=== PATIENT | female | born 1950 | race Two or more races ===

== ENCOUNTER 2019-02-27 16:33 | Inpatient (IN) | payer OTHER ==
[~2019-02-27] VITALS: Ht 162.6 cm; Wt 68.0 kg
[2019-03-12] MEDS ORDERED: LIPITOR20 MG PO (10:40)
[2019-03-12] MEDS ORDERED: METFORMIN HCL500 MG PO (10:40)
== END 2019-03-26 17:02 | disposition home or self-care (01) | DRG 330 ==
LOC: SURG 03-12 08:15 → O/R 03-19 05:36 → SURG 03-19 05:36
PROVIDERS: ADMIT Colon & Rectal Surgery
PROC: 07TC4ZZ Resection of Pelvis Lymphatic, Percutaneous Endoscopic Approach (ICD-10-PCS; 2019-03-19)
PROC: 0DTN4ZZ Resection of Sigmoid Colon, Percutaneous Endoscopic Approach (ICD-10-PCS; 2019-03-19)
PROC: 07TD4ZZ Resection of Aortic Lymphatic, Percutaneous Endoscopic Approach (ICD-10-PCS; 2019-03-19)
PROC: 0D1B4Z4 Bypass Ileum to Cutaneous, Percutaneous Endoscopic Approach (ICD-10-PCS; principal; 2019-03-19 11:45)
DX: C20 Malignant neoplasm of rectum (principal); K92.1 Melena; K63.89 Other specified diseases of intestine; N73.6 Female pelvic peritoneal adhesions (postinfective); D72.828 Other elevated white blood cell count; R59.0 Localized enlarged lymph nodes; E78.00 Pure hypercholesterolemia, unspecified; E11.9 Type 2 diabetes mellitus without complications; Z08 Encounter for follow-up examination after completed treatment for malignant neoplasm; Z79.4 Long term (current) use of insulin; Z85.048 Personal history of other malignant neoplasm of rectum, rectosigmoid junction, and anus

== ENCOUNTER 2019-06-09 10:37 | Inpatient (IN) | payer OTHER ==
[~2019-06-09] VITALS: Ht 162.6 cm; Wt 57.2 kg
[~2019-06-09 10:37] MED LIST: LIPITOR20 MG PO; METFORMIN HCL500 MG PO
[2019-06-23] MEDS ORDERED: IMODIUM A-D2 M2 PO (10:56)
== END 2019-07-04 15:59 | disposition home or self-care (01) | DRG 330 ==
LOC: ADM 06-23 09:00 → O/R 07-01 06:30 → SURH 07-01 06:30 → CIR.AMB 07-01 09:00 → EDSTATUS 07-01 09:00 → SURH 07-01 13:11
PROVIDERS: ADMIT Colon & Rectal Surgery
PROC: 0DQB4ZZ Repair Ileum, Percutaneous Endoscopic Approach (ICD-10-PCS; principal; 2019-07-01 16:45)
DX: Z43.2 Encounter for attention to ileostomy (principal); C20 Malignant neoplasm of rectum; E11.9 Type 2 diabetes mellitus without complications; Z79.4 Long term (current) use of insulin

== ENCOUNTER 2019-11-05 08:25 | Emergency (ER) | payer OTHER ==
[~2019-11-05] VITALS: Ht 162.6 cm; Wt 59.0 kg
[~2019-11-05 08:25] MED LIST changes: +IMODIUM A-D2 M2 PO
[2019-11-05] MEDS ORDERED: FUSION PLUS CA1 EACH PO (08:45)
[2019-11-05] MEDS ORDERED: PROTONIX40 MG PO (08:45)
[2019-11-05] MEDS ORDERED: VALSARTAN40 MG PO (08:45)
== END 2019-11-05 15:48 | disposition home or self-care (01) ==
LOC: ER 08:25
DX: K62.5 Hemorrhage of anus and rectum (principal)

== ENCOUNTER 2020-01-23 07:10 | Day surgery (SDC) | payer OTHER ==
[~2020-01-23 07:10] MED LIST changes: +FUSION PLUS CA1 EACH PO; +PROTONIX40 MG PO; +VALSARTAN40 MG PO
== END 2020-01-23 13:30 | disposition home or self-care (01) ==
LOC: AMB-ENDOS 07:10 → ADM 13:00 → AMB-ENDOS 13:00
PROVIDERS: ATTEND Colon & Rectal Surgery
DX: K62.89 Other specified diseases of anus and rectum (principal)

== ENCOUNTER 2021-04-13 05:20 | Day surgery (SDC) | payer OTHER ==
[2021-04-13] MEDS ORDERED: PERCOCET 5-3251 EACH PO (10:53)
[2021-04-13] MEDS ORDERED: NEURONTIN600 M1 PO (10:53)
[2021-04-13] MEDS ORDERED: POLY119PG PO (10:53)
== END 2021-04-13 13:15 | disposition home or self-care (01) ==
LOC: CIR.AMB 05:20
PROVIDERS: ATTEND Surgery
DX: K43.0 Incisional hernia with obstruction, without gangrene (principal); Z20.822 Contact with and (suspected) exposure to COVID-19